=== PATIENT | female | born 1970 | race Caucasian/White ===

== ENCOUNTER 2017-09-05 10:06 | Day surgery (SDC) | payer OTHER ==
[~2017-09-05 10:06] MED LIST: ACETAMINOPHEN 325 MG TABLET (FP) PO PRN; TRIAMCINOLONE ACET 40MG/1ML VIAL NR ONE
[2017-09-05] MEDS ORDERED: CIPROFLOXACIN 0.3% EYE DROPS 5 ML BOTTLE ONE (10:32)
[2017-09-05] MEDS: CIPROFLOXACIN HCL 0.3% OPHTH 2.5ML BOTTLE OP SCH ×3 (10:40→10:55)
[2017-09-05 10:46] VITALS: TEMP 98.4
[2017-09-05 10:52] VITALS: BMI 40.9
[2017-09-05] MEDS ORDERED: LIDOCAINE HCL 2% JELLY (5 ML/TUBE) ONE (11:20)
[2017-09-05] MEDS ORDERED: MIDAZOLAM HCL 2 MG/2 ML SINGLE DOSE VIAL ONE (11:30)
[2017-09-05] MEDS ORDERED: LIDOCAINE HCL 2% JELLY (5 ML/TUBE) TP ONE (11:33)
[2017-09-05] MEDS ORDERED: POVIDONE-IODINE 5% OPHTHALMIC PREP 30 ML SOLUTION OD ONE (11:36)
[2017-09-05] MEDS ORDERED: TETRACAINE 0.5% OPHTH SOLN 2 ML BOTTLE OD ONE ×2 (11:46)
[2017-09-05] MEDS ORDERED: BSS (NA/CA/MG/K) BALANCED SALT SOLUTION OPHTH SOLN 15 ML BOTTLE OD ONE (11:46)
[2017-09-05] MEDS ORDERED: KETOROLAC TROMETHAMINE 30 MG/1 ML VIAL ONE (11:49)
[2017-09-05] MEDS ORDERED: TRIAMCINOLONE ACET 40MG/1ML VIAL NR ONE (12:32)
--- NOTE | 2017-09-05 14:28 | OP ---
DATE OF OPERATION: 09/05/2017 PREOPERATIVE DIAGNOSIS: Recurrent pterygium, right eye. POSTOPERATIVE DIAGNOSIS: Recurrent pterygium, right eye. PROCEDURE: Excision of a recurrent pterygium with conjunctival autograft, right eye. ANESTHESIA: Topical, MAC. COMPLICATIONS: None. DESCRIPTION OF PROCEDURE: Patient was brought to the operating room and correctly identified, along with the operative site. She was then prepped and draped in the usual sterile fashion including 5% Betadine solution in the conjunctival sac and an eyelid drape. An eyelid speculum was then placed into the right eye. The pterygium was inspected and was noted to be recurring inferonasally to the central cornea , covering the pupil. A marking pen was used to atul the nasal border of the pterygium, and 2 relaxing incisions were made superiorly and inferiorly on the edge of the pterygium. A significant amount of scleral scarring was noted, however. The pterygium was then bluntly dissected from the corneal surface using a combination of colibri forceps, Paul scissors as well as Weck-adenike sponges. Care was made to remain superficial and only bluntly dissect the pterygium. The scleral bed was cleaned with of residual scar tissue with paul scissors and colibri forceps. After the pterygium was removed corneal surface, the prior nasal conjunctival autograft was noted above the site of the recurrence. The pterygium was then further dissected posteriorly with blunt dissection with care made not to damage the medial rectus by elevating the tissue. A small amount of tissue was as well dissected subconjunctivally, and the pterygium was excised at its base. The conjunctival defect was then inspected and measured 4 mm vertically at the limbus x 4.5 mm posteriorly x 9 mm horizontally. The corneal surface was polished using a combination of 57 blade as well as paola logan. Most of the corneal scarring was seen to be removed completely except a small amount of residual tissue in the periphery of the cornea. Attention was then placed to the superotemporal conjunctiva, and an appropriate sized conjunctival autograft was fashioned by first injecting lidocaine 1% with epinephrine into subconjunctival space, then dissecting the conjunctival autograft using Paul scissors. The graft was then placed in the conjunctival area of the conjunctival defect and secured with six 10-0 nylon interrupted sutures. The graft was noted to well positioned with no wound gape at the end of the procedure. The subconjunctival Kenalog was given at the operative site as well as topical vancomycin, an eye patch, and the patient discharged from the operating room in a stable condition. TAISHA BOWEN M.D. [id number] MTDD
[2017-09-05 15:21] VITALS: BP 103/63; PULSE 62
--- NOTE | 2017-09-06 15:00 | PATH ---
Surgical Pathology Report Patient Name: [facility]. Rec. #: [id number] /Age/Gender: 1970 (Age: 47) / F Account: [id number] Location: [facility] Taken: 09/05/2017 Received: 09/05/2017 Reported: 09/06/2017 Physicians: Mina Albright M.D. Specimen(s) Received RECURRENT PTERYGIUM RIGHT EYE Clinical History Recurrent pterygium right eye Final Diagnosis EYE, RIGHT, PTERYGIUM, BIOPSY: CONSISTENT WITH PTERYGIUM. Electronically Signed Geovanna Rodriguez M.D. Gross Description Received in formalin, labeled "recurrent pterygium right eye" are 2 brown, irregular portions of soft tissue measuring 0.4 and 0.5 cm. in greatest dimension. The specimens are submitted in toto in one cassette. 09/06/201709/06/2017
== END 2017-09-05 13:30 | disposition home or self-care (01) ==
LOC: JASU-SURG 10:06
PROVIDERS: ATTEND Ophthalmology
PROC: 08U007Z Supplement of Right Eye with Autologous Tissue Substitute, Open Approach (ICD-10-PCS; principal; 2017-09-05 11:00)
DX: H11.061 Recurrent pterygium of right eye (principal)
CPT/HCPCS: 84703; 88304-TC

== ENCOUNTER 2023-09-17 19:14 | Observation (INO) | payer OTHER ==
[2023-09-17] MEDS ORDERED: ACETAMINOPHEN INJECTION 100 ML IVPB ONE (20:30)
[2023-09-17] MEDS ORDERED: FAMOTIDINE 20 MG/50 ML IVPB 20 MG/50 ML MG IVPB ONE (20:31)
[2023-09-17] MEDS ORDERED: MAG HYDROX/AL HYDROX/SIMETH 30 ML UNIT-DOSE CUP ONE (20:31)
[2023-09-17 20:38] LABS: BASO % 0.5 % (0-2.0); EOS % 2.1 % (0-4.5); HEMATOCRIT 34.8 % (32.4-45.2); HEMOGLOBIN 11.3 GM/dL (10.7-15.3); LYMPH % 41.6 % (8-40); MCH 28.2 pg (25.7-33.7); MCHC 32.5 g/dl (32.0-36.0); MEAN CELL VOLUME 86.6 fl (80-96); MEAN PLT VOLUME 7.6 fl (7.5-11.1); MONO % 8.2 % (3.8-10.2); NEUT % 47.6 % (42.8-82.8); PH,URINE 5.5 (5.0-8.0); PLATELET COUNT 361 10^3/uL (134-434); RBC 4.02 M/mm3 (3.60-5.2); RDW 15.3 % (11.6-15.6); URINE APPEARANCE CLEAR; URINE BILIRUBIN NEGATIVE (NEGATIVE); URINE COLOR YELLOW; URINE GLUCOSE (UA) NEGATIVE (NEGATIVE); URINE KETONE NEGATIVE (NEGATIVE); URINE LEUK ESTERASE NEGATIVE (NEGATIVE); URINE NITRITE NEGATIVE (NEGATIVE); URINE PROTEIN NEGATIVE (NEGATIVE); URINE UROBILINOGEN 0.2 mg/dL (0.2-1.0); WHITE BLOOD COUNT 6.3 K/mm3 (4.0-10.0)
[2023-09-17] MEDS: SODIUM CHLORIDE 1,000 ML IV STA (20:38)
[2023-09-17] MEDS: ACETAMINOPHEN 1000 MG/100 ML BAG IVPB ONE (20:38)
[2023-09-17] MEDS: FAMOTIDINE 20 MG/50 ML IVPB 20 MG/50 ML MG IVPB ONE (20:38)
[2023-09-17] MEDS: MAG HYDROX/AL HYDROX/SIMETH 30 ML UNIT-DOSE CUP PO ONE (20:38)
[2023-09-17 20:49] LABS: INR 1.04 (0.83-1.09); PROTHROMBIN TIME (PATIENT) 11.7 SEC (9.7-13.0)
[2023-09-17 20:50] LABS: POTASSIUM 4.5 mmol/L (3.5-5.1)
[2023-09-17 20:52] LABS: ACTIVATED PTT 30.6 SECONDS (25.2-36.5)
[2023-09-17 20:55] LABS: ALBUMIN 3.8 g/dl (3.4-5.0); BLOOD UREA NITROGEN 20.8 mg/dL (7-18); MAGNESIUM 2.3 mg/dL (1.8-2.4)
[2023-09-17 20:58] LABS: CREATININE 0.6 mg/dL (0.55-1.3)
[2023-09-17 20:59] LABS: TOT PROT 7.4 g/dl (6.4-8.2)
[2023-09-17 21:00] LABS: BILIRUBIN,TOTAL 0.4 mg/dL (0.2-1)
[2023-09-18] MEDS ORDERED: morphine SULFATE 4 MG/ML VIAL ONE ×2 (01:33→03:38)
[2023-09-18] MEDS: morphine CARPU-JECT 4 MG/1 ML DISP.SYRIN IVPUSH ONE ×2 (01:35→03:47)
[2023-09-18] MEDS ORDERED: KETOROLAC TROMETHAMINE 15 MG/ML VIAL ONE (03:48)
[2023-09-18] MEDS: KETOROLAC TROMETHAMINE 15 MG/ML VIAL IVPUSH ONE (03:56)
[2023-09-18] MEDS: ACETAMINOPHEN 1000 MG/100 ML BAG IVPB PRN (04:55)
[2023-09-18] MEDS: SODIUM CHLORIDE 1,000 ML IV SCH (04:55)
[2023-09-18 05:59] VITALS: BMI 41.3
[2023-09-18 08:16] LABS: BASO % 0.6 % (0-2.0); EOS % 2.1 % (0-4.5); HEMATOCRIT 30.1 % (32.4-45.2); LYMPH % 45.1 % (8-40); MCHC 33.3 g/dl (32.0-36.0); MEAN PLT VOLUME 8.2 fl (7.5-11.1); MONO % 9.4 % (3.8-10.2); NEUT % 42.8 % (42.8-82.8); PLATELET COUNT 309 10^3/uL (134-434); RBC 3.46 M/mm3 (3.60-5.2); RDW 14.4 % (11.6-15.6); WHITE BLOOD COUNT 5.2 K/mm3 (4.0-10.0)
[2023-09-18 08:33] LABS: POTASSIUM 3.8 mmol/L (3.5-5.1)
[2023-09-18 08:36] LABS: BLOOD UREA NITROGEN 13.3 mg/dL (7-18)
[2023-09-18 08:39] LABS: CREATININE 0.5 mg/dL (0.55-1.3)
[2023-09-18] MEDS: PANTOPRAZOLE 40 MG TABLET PO SCH (11:36)
[2023-09-18] MEDS: LISINOPRIL 10 MG TABLET PO SCH (16:09)
[2023-09-18] MEDS: INSULIN ASPART SLIDING SCALE (NOVOLOG) 1 VIAL SQ SCH (16:37)
[2023-09-19 08:20] LABS: BASO % 0.4 % (0-2.0); EOS % 4.4 % (0-4.5); HEMATOCRIT 32.1 % (32.4-45.2); HEMOGLOBIN 10.5 GM/dL (10.7-15.3); LYMPH % 44.2 % (8-40); MCH 28.5 pg (25.7-33.7); MCHC 32.9 g/dl (32.0-36.0); MEAN CELL VOLUME 86.7 fl (80-96); MONO % 9.4 % (3.8-10.2); NEUT % 41.6 % (42.8-82.8); PLATELET COUNT 312 10^3/uL (134-434); RDW 14.9 % (11.6-15.6); WHITE BLOOD COUNT 3.8 K/mm3 (4.0-10.0)
[2023-09-19 08:23] LABS: POTASSIUM 4.4 mmol/L (3.5-5.1)
[2023-09-19 08:25] LABS: CALCIUM 8.8 mg/dL (8.5-10.1)
[2023-09-19 08:26] LABS: BLOOD UREA NITROGEN 8.7 mg/dL (7-18)
[2023-09-19 08:29] LABS: CREATININE 0.4 mg/dL (0.55-1.3)
[2023-09-19 08:31] LABS: BILIRUBIN,TOTAL 0.4 mg/dL (0.2-1); TOT PROT 6.2 g/dl (6.4-8.2)
[2023-09-19 08:32] LABS: ALBUMIN 2.9 g/dl (3.4-5.0)
[2023-09-19 09:08] VITALS: RESP 18
[2023-09-19] MEDS: HYDROCHLOROTHIAZIDE 12.5 MG CAPSULE (FP) PO SCH (10:45)
[2023-09-19 14:59] VITALS: BP 126/68; PULSE 74; TEMP 98.9
== END 2023-09-19 16:18 | disposition home or self-care (01) ==
LOC: JER 19:14 → JERBED 09-18 00:30 → J7W 09-18 05:10
PROVIDERS: ADMIT Internal Medicine; ATTEND Internal Medicine
PROC: 3E033NZ Introduction of Analgesics, Hypnotics, Sedatives into Peripheral Vein, Percutaneous Approach (ICD-10-PCS; principal; 2023-09-18)
PROC: 3E033GC Introduction of Other Therapeutic Substance into Peripheral Vein, Percutaneous Approach (ICD-10-PCS; 2023-09-18)
PROC: 3E0333Z Introduction of Anti-inflammatory into Peripheral Vein, Percutaneous Approach (ICD-10-PCS; 2023-09-18)
DX: K46.9 Unspecified abdominal hernia without obstruction or gangrene (principal); R10.31 Right lower quadrant pain; I10 Essential (primary) hypertension; E78.5 Hyperlipidemia, unspecified; D64.9 Anemia, unspecified; J45.909 Unspecified asthma, uncomplicated
CPT/HCPCS: 36415; 74177-TC; 76705-TC; 80048; 80053; 81003; 82962; 83036; 83605; 83690; 83735; 84484; 84703; 85025; 85610; 85730; 86850; 86900; 86901; 87086; 93005; 93010; 96361; 96365; 96375; 96376; 99285-25; G0378; J0131; Q9967

== ENCOUNTER 2023-09-24 04:38 | Day surgery (SDC) | payer OTHER ==
[2023-09-24] MEDS ORDERED: ceFAZolin SODIUM 1 GM VIAL ONE (10:48)
[2023-09-24] MEDS ORDERED: BUPIVACAINE HCL/PF 0.25% (2.5MG/ML) 10 ML VIAL ONE (16:08)
[2023-09-24] MEDS ORDERED: FENTANYL CITRATE/PF 50 MCG/ML VIAL ONE ×2 (16:26→20:10)
[2023-09-24] MEDS ORDERED: MIDAZOLAM HCL 2 MG/2 ML SINGLE DOSE VIAL ONE (16:26)
[2023-09-24] MEDS ORDERED: ROCURONIUM BROMIDE 50 MG/5 ML VIAL ONE ×2 (16:26→19:12)
[2023-09-24] MEDS: ceFAZolin SODIUM 1 GM VIAL IVPB ONE (17:20)
[2023-09-24] MEDS: BUPIVACAINE HCL/PF 0.25% (2.5MG/ML) 10 ML VIAL IJ ONE ×2 (17:30)
[2023-09-24] MEDS ORDERED: NEOSTIGMINE METHYLSULFATE 0.5 MG/1 ML - 10 ML MDV ONE (20:07)
[2023-09-24] MEDS ORDERED: HYDROmorphone HCl 2 MG/ML VIAL ONE (20:19)
[2023-09-24] MEDS ORDERED: ONDANSETRON 4 MG/2 ML VIAL IVPUSH PRN (20:33)
[2023-09-24] MEDS ORDERED: oxyCODONE HCL 5 MG TABLET PO PRN (20:36)
[2023-09-24] MEDS ORDERED: LACTATED RINGERS SOLUTION 1,000 ML IV SCH (20:45)
[2023-09-24] MEDS ORDERED: MONTELUKAST NA 10 MG TABLET PO PRN (20:47)
[2023-09-24] MEDS ORDERED: KETOROLAC TROMETHAMINE 30 MG/1 ML VIAL ONE (20:51)
[2023-09-24] MEDS: KETOROLAC TROMETHAMINE 30 MG/1 ML VIAL IM PRN (20:58)
[2023-09-24] MEDS ORDERED: KETOROLAC TROMETHAMINE 30 MG/1 ML VIAL IVPUSH PRN (20:59)
[2023-09-25 00:41] VITALS: RESP 18
[2023-09-25 01:25] VITALS: BMI 41.5
[2023-09-25] MEDS: ACETAMINOPHEN 1000 MG/100 ML BAG IVPB SCH (02:12)
[2023-09-25 03:15] VITALS: TEMP 97.9
[2023-09-25 06:59] VITALS: BP 112/77; PULSE 67
[2023-09-25] MEDS: CEFAZOLIN SODIUM 2 GM in DEXTROSE 5%-WATER 100 ML IVPB ONE (07:38)
[2023-09-25] MEDS: DOCUSATE SODIUM 100 MG CAPSULE (FP) PO SCH (10:16)
[2023-09-25] MEDS: LISINOPRIL 10 MG TABLET PO SCH (10:16)
[2023-09-25 10:52] LABS: BASO % 0.1 % (0-2.0); HEMATOCRIT 34.4 % (32.4-45.2); HEMOGLOBIN 11.2 GM/dL (10.7-15.3); LYMPH % 15.8 % (8-40); MCH 28.1 pg (25.7-33.7); MCHC 32.4 g/dl (32.0-36.0); MEAN CELL VOLUME 86.6 fl (80-96); MONO % 9.5 % (3.8-10.2); NEUT % 74.6 % (42.8-82.8); PLATELET COUNT 329 10^3/uL (134-434); RBC 3.97 M/mm3 (3.60-5.2); RDW 14.7 % (11.6-15.6); WHITE BLOOD COUNT 7.7 K/mm3 (4.0-10.0)
[2023-09-25] MEDS: oxyCODONE HCL 5 MG TABLET PO PRN (11:19)
[2023-09-25 11:33] LABS: POTASSIUM 4.5 mmol/L (3.5-5.1)
[2023-09-25 11:35] LABS: BLOOD UREA NITROGEN 17.3 mg/dL (7-18); CALCIUM 9.6 mg/dL (8.5-10.1)
[2023-09-25 11:36] LABS: ALBUMIN 3.4 g/dl (3.4-5.0)
[2023-09-25 11:39] LABS: CREATININE 0.8 mg/dL (0.55-1.3)
[2023-09-25 11:40] LABS: BILIRUBIN,TOTAL 0.5 mg/dL (0.2-1); TOT PROT 7.2 g/dl (6.4-8.2)
== END 2023-09-25 15:05 | disposition home or self-care (01) ==
LOC: JASU-SURG 04:38 → JASUSAT 04:38 → J8W 22:14 → JASUSAT 09-25 15:05
PROVIDERS: ATTEND Internal Medicine
PROC: 8E0W4CZ Robotic Assisted Procedure of Trunk Region, Percutaneous Endoscopic Approach (ICD-10-PCS; 2023-09-24)
PROC: 0WUF4JZ Supplement Abdominal Wall with Synthetic Substitute, Percutaneous Endoscopic Approach (ICD-10-PCS; principal; 2023-09-24 13:00)
DX: K43.9 Ventral hernia without obstruction or gangrene (principal)
CPT/HCPCS: 49593; S2900; 36415; 80053; 85025; 86850; 86900; 86901; 94760; C1781; J0131

== ENCOUNTER 2024-01-04 10:02 | Emergency (ER) | payer OTHER ==
[2024-01-04 10:11] VITALS: BP 116/55; PULSE 64; RESP 17; TEMP 98.4; BMI 40.2
[2024-01-04] MEDS ORDERED: ACETAMINOPHEN 325 MG TABLET (FP) ONE (11:02)
[2024-01-04] MEDS ORDERED: ONDANSETRON *ODT* 4 MG TABLET ONE (11:02)
[2024-01-04] MEDS: ACETAMINOPHEN 500 MG TABLET (FP) PO ONE (11:30)
[2024-01-04] MEDS: ONDANSETRON 4 MG TABLET PO ONE (11:31)
== END 2024-01-04 13:06 | disposition home or self-care (01) ==
LOC: JER 10:02
DX: M25.561 Pain in right knee (principal); R07.9 Chest pain, unspecified; V43.62XA Car passenger injured in collision with other type car in traffic accident, initial encounter; Y92.410 Unspecified street and highway as the place of occurrence of the external cause
CPT/HCPCS: 70450-TC; 71045-TC-FY; 72125-TC; 73562-TC-RT-FY; 99284-25